=== PATIENT | male | born 1995 | race Two or more races ===

== ENCOUNTER 2024-04-26 20:25 | Emergency (ER) | payer OTHER ==
[~2024-04-26] VITALS: Ht 185.4 cm; Wt 95.3 kg
[2024-04-26] MEDS ORDERED: LORAZEPAM 1 MG TABLET ONE (21:08)
[2024-04-26] MEDS ORDERED: ACETAMINOPHEN ES 500 MG TABLET ONE (21:08)
[2024-04-26] MEDS: LORAZEPAM 1 MG TABLET PO ONE (21:13)
[2024-04-26] MEDS: ACETAMINOPHEN ES 500 MG TABLET PO ONE (21:13)
[2024-04-26 22:15] VITALS: TEMP 97.4
[2024-04-26 22:47] VITALS: BP 120/78; O2SAT 98
== END 2024-04-26 22:45 | disposition home or self-care (01) ==
LOC: ER 20:33
DX: F41.1 Generalized anxiety disorder (principal); G44.209 Tension-type headache, unspecified, not intractable; Z60.2 Problems related to living alone